=== PATIENT | male | born 1995 | race Caucasian/White ===

== ENCOUNTER 2024-05-14 13:42 | Emergency (ER) | payer SELFPAY ==
[2024-05-14 13:49] VITALS: BP 108/75; PULSE 81; RESP 18; TEMP 36.8; O2SAT 94; BMI 39.3
--- NOTE | 2024-05-14 13:54 | ECG_ITS ---
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
--- NOTE | 2024-05-14 14:01 | XR_ITS ---
WS: [id number] Exam: XR chest 1V portable [id number] Date/Time of Exam: 05/14/2024 2:01 PM Reason For Exam: chest pain No priors. Lungs are clear. Normal cardiomediastinal silhouette and regional bony elements. No pleural effusion. XR/XR chest 1V portable [id number] IMPRESSION: 1. Negative chest.
[2024-05-14 14:33] LABS: Basophils # 0.1 10^3/uL (0.0-0.1); Basophils % 0.6 %; Eosinophils # 0.3 10^3/uL (0.0-0.8); Eosinophils % 3.4 %; Hematocrit 47.4 % (37-53); Lymphocytes # 2.6 10^3/uL (0.8-4.8); Lymphocytes % 32.4 %; Mean Corpuscular HGB Conc 31.6 g/dL (30-55); Mean Corpuscular Hemoglobin 27.1 pg (27-33); Mean Corpuscular Volume 85.7 fl (82-101); Mean Platelet Volume 9.5 fL (7.4-10.4); Monocytes # 0.6 10^3/uL (0.2-0.9); Monocytes % 7.8 %; Neutrophils # 4.48 10^3/uL (1.8-7.7); Neutrophils % 54.9 %; Nucleated Red Blood Cells % 0 %; Platelet Count 421 10^3/cmm (157-399); Red Blood Count 5.53 10^6/uL (3.85-5.65); Red Cell Distribution Width 13.2 % (12.1-15.1); White Blood Count 8.16 10^3/uL (3.29-11.43)
[2024-05-14 14:39] VITALS: BP 115/71; PULSE 85; RESP 16; O2SAT 91
--- NOTE | 2024-05-14 14:57 | ED_ITS ---
HPI - Arrhythmia/Palpitations 2 General: Chief Complaint: Recheck/Abnormal Lab/Rx Stated Complaint: Fast heart beat, chest tightness Time Seen by Provider: 05/14/24 14:31 Source: patient and family Mode of arrival: ambulatory Limitations: no limitations History of Present Illness: Patient is a 29-year-old male presents to ED today with complaint of intermittent episodes of palpitations/racing heart. He states symptoms began about a week or so ago. In total he has had 5 episodes lasting from a few minutes to up to 1 hour. He states he feels like his heart is beating out of his chest . Patient has never taken his heart rate during these periods. He states they seem to happen at rest before he goes to bed. Denies history of anxiety. Denies drug use. He does not take any medications prior to bed that would cause symptoms. Patient concerned as he has a longstanding family history of early onset cardiac disease. Patient has no known history of hypertension, hyperlipidemia, or diabetes, he is not a smoker. He states he has had multiple micros in the past. I asked him what he meant by this terminology and he tells me they are like miniature heart attacks . Patient was reportedly seen at an outlying clinic and referred to the emergency department due to concerns on his EKG. complaint: rapid heart beat, heart racing and palpitations Onset (ago): day(s) Duration: intermittent Severity: moderate Context: occurred during rest Associated symptoms: Reports no associated symptoms; Deny nausea, pre-syncope, syncope or vomiting Related Data Allergies Allergy/AdvReac Type Severity Reaction Status Date / Time No Known Allergies Allergy Verified 05/14/24 14:00 Review of Systems 2 Const: Denies: fever(s) or chills Eyes: Denies: change in vision or blurry vision Card: Reports: palpitations; Denies: chest pain, irregular heart rhythm, edema, swelling of feet/ankles, lightheadedness, syncope, pre-syncope, dyspnea on exertion, orthopnea, leg pain with exertion or acrocyanosis Resp: Denies: dyspnea, productive cough or pain on inspiration GI: Denies: abdominal pain, nausea, vomiting, heartburn or diarrhea : Denies: difficulty urinating or dysuria Musc: Denies: neck pain, back pain, extremity pain, extremity swelling or joint pain Skin/Breast: Denies: rash Neuro: Denies: dizziness Physical Exam 2 Const: COMMON NORMALS: no acute distress, patient oriented x3, no limitations, alert and well nourished GENERAL APPEARANCE: cooperative NUTRITIONAL APPEARANCE: obese ORIENTATION/CONSCIOUSNESS: Yes awake, Yes oriented to person, Yes oriented to place and Yes oriented to time Chest: COMMONS NORMALS: normal inspection of the chest and normal palpation of entire chest wall Resp: COMMON NORMALS: normal respiratory effort and clear to auscultation bilaterally AUSCULTATION: clear to auscultation bilaterally Cardio: COMMON NORMALS: regular rate and regular rhythm RATE: regular rate RHYTHM: regular rhythm Extremity: COMMON NORMALS: no clubbing, cyanosis or edema, no calf tenderness and no pedal edema GENERAL: Yes normal exam except as noted Neuro: COMMON NORMALS: patient oriented x3 SENSORIUM/ORIENTATION: Yes alert, Yes oriented to person, Yes oriented to place and Yes oriented to time Course 2 Vital Signs: Vital signs: Vital Signs Temperature 98.2 F 05/14/24 13:49 Pulse Rate 85 05/14/24 14:39 Respiratory Rate 16 05/14/24 14:39 Blood Pressure 115/71 05/14/24 14:39 Pulse Oximetry 91 05/14/24 14:39 Oxygen Delivery Me thod Room Air 05/14/24 14:39 MDM - Arrhythmia/Palpitations Medical Decision Making Patient has been asymptomatic throughout his stay. His vital signs have been stable. Blood work including baseline troponin and TSH are unremarkable. [facility] EKGs showing sinus rhythm with early repolarization. I suspect this is what the outlying provider was possibly concerned with. His EKG here is completely unremarkable. Will refer patient to cardiology for evaluation of a possible Holter monitor as well as further evaluation given his family history of early onset cardiac disease. Return to ED precautions given. Medical Records I reviewed the patient's medical records. Lab Data I reviewed the patient's lab results. 05/14/24 14:24 05/14/24 14:24 Radiology Impressions Chest X-Ray 05/14/24 14:01 IMPRESSION: 1. Negative chest. Laboratory Results WBC 8.16 10^3/uL (3.29-11.43) 05/14/24 14:24 RBC 5.53 10^6/uL (3.85-5.65) 05/14/24 14:24 Hgb 15.00 g/dL (11.27-16.99) 05/14/24 14:24 Hct 47.4 % (37-53) 05/14/24 14:24 MCV 85.7 fl (82-101) 05/14/24 14:24 MCH 27.1 pg (27-33) 05/14/24 14:24 MCHC 31.6 g/dL (30-55) 05/14/24 14: RDW 13.2 % (12.1-15.1) 05/14/24 14:24 Plt Count 421 10^3/cmm (157-399) H 05/14/24 14:24 MPV 9.5 fL (7.4-10.4) 05/14/24 14: Neut % (Auto) 54.9 % 05/14/24 14: Lymph % (Auto) 32.4 % 05/14/24 14: Glasscock % (Auto) 7.8 % 05/14/24 14: Eos % (Auto) 3.4 % 05/14/24 14:24 Baso % (Auto) 0.6 % 05/14/24 14:24 Neut # (Auto) 4.48 10^3/uL (1.8-7.7) 05/14/24 14: Lymph # (Auto) 2.6 10^3/uL (0.8-4.8) 05/14/24 14:24 Glasscock # (Auto) 0.6 10^3/uL (0.2-0.9) 05/14/24 14:24 Eos # (Auto) 0.3 10^3/uL (0.0-0.8) 05/14/24 14:24 Baso # (Auto) 0.1 10^3/uL (0.0-0.1) 05/14/24 14:24 Nucleated RBC % (auto) 0 % 05/14/24 14: Nucleated RBCs # 0.0 /100WBC 05/14/24 14:24 Sodium 139 mmol/L (136-145) 05/14/24 14:24 Potassium 4.3 mmol/L (3.5-5.1) 05/14/24 14:24 Chloride 105 mmol/L (98-107) 05/14/24 14:24 Carbon Dioxide 24 mmol/L (22-29) 05/14/24 14:24 Anion Gap 14.3 (5-19) 05/14/24 14:24 BUN 13 mg/dL (6-20) 05/14/24 14:24 Creatinine 1.0 mg/dL (0.7-1.2) 05/14/24 14:24 GFR Calculation 87.2 mL/min (90-130) L 05/14/24 14:24 Glucose 78 mg/dL (65-115) 05/14/24 14:24 Calculated Osmolality 287 mOsm/kg (285-295) 05/14/24 14:24 Calcium 8.4 mg/dL (8.5-10.5) L 05/14/24 14:24 Total Bilirubin 0.5 mg/dL (0.15-1.2) 05/14/24 14:24 AST 12 U/L (0-40) 05/14/24 14:24 ALT 15 U/L (0-41) 05/14/24 14:24 Alkaline Phosphatase 79 U/L (40-130) 05/14/24 14:24 Troponin T Baseline 8 ng/L (0-15) 05/14/24 14:24 Total Protein 6.8 g/dL (6.6-8.7) 05/14/24 14:24 Albumin 4.5 g/dL (3.5-5.2) 05/14/24 14:24 Globulin 2.3 g/dL (1.3-4.6) 05/14/24 14:24 TSH 2.35 uIU/mL (0.27-4.20) 05/14/24 14:24 All radiology interpretation(s) finalized by discharge Discharge Plan Discharge Patient Disposition: Home Clinical Impression: Heart palpitations Condition: Stable Discharge Orders: Discharge ED (Routine); Ordered 05/14/24 Ordered By: Jewell Sheldon Patient Instructions: Heart Palpitations (DC) Activity Restrictions/Additional Instructions: As we discussed, emergency department evaluation is unremarkable. I have referred you to cardiology for further evaluation of your symptoms that could include a Holter monitor as well as other management regarding your family history of early cardiac disease. You may return to the emergency department for worsening symptoms, onset of severe constant chest pain, shortness of breath, difficulty breathing, passing out episodes, or any other concerns you may have. I hope you begin to feel better soon. Coding Level of Care Code ED Physiotherapy Assistant for Ed Bridges
[2024-05-14 15:00] LABS: Troponin(5th) Baseline 8 ng/L (0-15)
[2024-05-14 15:12] LABS: Alanine Aminotransferase 15 U/L (0-41); Albumin Level 4.5 g/dL (3.5-5.2); Alkaline Phosphatase 79 U/L (40-130); Anion Gap 14.3 (5-19); Aspartate Amino Transferase 12 U/L (0-40); Blood Urea Nitrogen 13 mg/dL (6-20); Calcium 8.4 mg/dL (8.5-10.5); Carbon Dioxide 24 mmol/L (22-29); Chloride 105 mmol/L (98-107); Creatinine Clr Calc Pharmacy 150.1427; Globulin 2.3 g/dL (1.3-4.6); Glomerular Filtration Rate 87.2 mL/min (90-130); Glucose 78 mg/dL (65-115); Osmolality Calculated 287 mOsm/kg (285-295); Potassium 4.3 mmol/L (3.5-5.1); Sodium 139 mmol/L (136-145); Thyroid Stimulating Hormone 2.35 uIU/mL (0.27-4.20); Total Bilirubin 0.5 mg/dL (0.15-1.2); Total Protein 6.8 g/dL (6.6-8.7)
[2024-05-14 15:44] VITALS: BP 117/75; PULSE 72; O2SAT 94
--- NOTE | 2024-05-16 00:51 | DCPLANNER ---
message sent to cardiology for follow up-
== END 2024-05-14 15:45 | disposition home or self-care (01) ==
PROVIDERS: Emergency Provider Physician Assistant
DX: R00.2 Palpitations (principal)
CPT/HCPCS: 36415; 71045; 80053; 84443; 84484; 85025; 93005; 99285